=== PATIENT | female | born 1950 | race Hispanic/Latino ===

== ENCOUNTER 2017-03-14 08:25 | Outpatient (CLI) | payer MEDICARE, OTHER ==
--- NOTE | 2017-03-14 09:08 | XRay Report ---
XRAY RIGHT KNEE 4 THREE VIEWS: 03/14/17 CLINICAL: Knee pain. FINDINGS: Mild osteopenia.Mild narrowing of the medial joint space and a subtle lucency with a sclerotic rim in the medial femoral condyle. The lateral joint space is normal. Patellofemoral joint osteoarthritis with small osteophytes. No fracture or dislocation. No joint effusion. Normal soft tissues. 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 Subtle lucency of the medial femoral condyle is more typical of a geode than osteochondritis dissecans.
== END 2017-03-14 08:26 | disposition home or self-care (01) ==
LOC: SPVIMAG 08:25
PROVIDERS: ATTEND Orthopaedic Surgery Sports Medicine
DX: M17.11 Unilateral primary osteoarthritis, right knee (principal); M85.861 Other specified disorders of bone density and structure, right lower leg